=== PATIENT | male | born 1975 | race Caucasian/White ===

== ENCOUNTER → 2023-02-13 | Outpatient (CLI) | payer BC ==
[2023-02-13 13:00] LABS: Basophils # (auto) 0 10 ^3/uL (0-0.2); Basophils % (auto) 0.6 % (0.0-2.0); Eosinophils # (auto) 0.1 10 ^3/uL (0-0.8); Eosinophils % (auto) 1.3 % (0.0-7.0); Hematocrit 46.8 % (41.0-53.0); Hemoglobin 15.2 g/dL (13.5-17.5); Lymphocytes # (auto) 2.3 10 ^3/uL (0.4-5.4); Lymphocytes % (auto) 30.9 % (10.0-50.0); Mean Corpuscular Hemoglobin 27.1 pg (28.0-32.0); Mean Corpuscular Hgb Conc. 32.6 g/dL (32.0-36.0); Mean Corpuscular Volume 83.3 fL (80.0-100.0); Monocytes # (auto) 0.4 10 ^3/uL (0-1.3); Neutrophils # (auto) 4.5 10 ^3/uL (1.6-8.6); Neutrophils % (auto) 61.2 % (37.0-80.0); Nucleated Red Blood Cells % 0.1 %; Red Blood Cells 5.61 10^6/uL (4.5-5.90); Red Cell Distribution Width 13.7 % (11.8-14.3); White Blood Cell 7.4 10^3/uL (4.4-10.8)
[2023-02-13 13:11] LABS: Urine Bacteria NONE SEEN /hpf (None Seen); Urine Blood Negative /uL (Negative); Urine Clarity Clear (Clear); Urine Color Yellow (Yellow); Urine Mucus FEW (None Seen); Urine Protein, UAD TRACE (Negative); Urine Specific Gravity 1.027 (1.001-1.035); Urine Urobilinogen Normal (Negative); Urine WBC 1 /hpf (0 - 3); Urine pH 5.5 (5.0-8.0)
[2023-02-13 13:30] LABS: Alanine Aminotransferase 37 U/L (7-40); Albumin 4.9 g/dL (3.2-4.8); Alkaline Phosphatase 73 U/L (46-116); Anion Gap 5 (5-15); Aspartate Aminotransferase 14 U/L (13-40); BUN/Creatinine Ratio 18.8 (10.0-20.0); Blood Urea Nitrogen 15 mg/dL (9-23); CRP High Sensitivity 0.34 mg/dL (<1.0); Calcium 9.3 mg/dL (8.5-10.1); Carbon Dioxide 29 mmol/L (20-30); Chloride 106 mmol/L (98-107); Glucose 82 mg/dL (74-106); LDL Cholesterol 112 mg/dL (< 100); Potassium 3.9 mmol/L (3.5-5.1); Sodium 140 mmol/L (136-145); Triglycerides 60 mg/dL (< 150)
[2023-02-13 13:31] LABS: Bilirubin, Total 0.8 mg/dL (0.2-1.0); Cholesterol 198 mg/dL (< 200); HDL Cholesterol 77 mg/dL (40-59); Total Protein 7.8 g/dL (5.7-8.2)
[2023-02-13 13:34] LABS: Carcinoembryonic Antigen < 0.50 ng/mL (<=5.0)
[2023-02-13 13:35] LABS: Folate (Folic Acid) 10.38 ng/mL (>5.38)
[2023-02-13 13:37] LABS: Erythrocyte Sedimentation Rate 2 mm/hr (0-20)
[2023-02-13 13:44] LABS: Uric Acid 4.8 mg/dL (3.7-9.2)
[2023-02-14 07:07] LABS: Estradiol 17.6 pg/mL (7.6-42.6); RPR Non Reactive (Non Reactive)
[2023-02-14 08:06] LABS: Rheumatoid Arthritis Factor <10.0 IU/mL (<14.0)
[2023-02-14 12:06] LABS: Anti-Nuclear Antibody Direct Negative (Negative)
[2023-02-14 22:06] LABS: Chlamydia Trachomatis, NAA Negative (Negative); Neisseria gonorrhoeae, NAA Negative (Negative)
== END | disposition home or self-care (01) ==
LOC: LAB 12:40
PROVIDERS: ATTEND Internal Medicine
DX: Z00.00 Encounter for general adult medical examination without abnormal findings (principal)
CPT/HCPCS: 36415; 80053; 80061; 81001; 82378; 82607; 82670; 82746; 83036; 84153; 84403; 84443; 84550; 85025; 85652; 86038; 86141; 86431; 86592; 86703; 86803; 87086

== ENCOUNTER → 2023-03-11 | Outpatient (CLI) | payer BC ==
[2023-03-11 13:08] LABS: Urine Bacteria NONE SEEN /hpf (None Seen); Urine Blood Negative /uL (Negative); Urine Clarity Clear (Clear); Urine Color Yellow (Yellow); Urine Protein, UAD Negative (Negative); Urine Specific Gravity 1.029 (1.001-1.035); Urine Urobilinogen Normal (Negative); Urine WBC 1 /hpf (0 - 3); Urine pH 5.5 (5.0-8.0)
== END | disposition home or self-care (01) ==
LOC: LAB 12:38
PROVIDERS: ATTEND Urology
DX: R39.0 Extravasation of urine (principal)
CPT/HCPCS: 81001; 87086

== ENCOUNTER → 2024-03-15 | Outpatient (CLI) | payer BC ==
[~2024-03-15] MED LIST: GASTROGRAFIN 30 ML SOL ONE
--- NOTE | 2024-03-15 14:58 | DVH ---
Exam: CT CT AB PEL WITH ORAL CON ONLY History: ABD PAIN Comparison Study: None available at time of dictation. TECHNIQUE: Multidetector CT of the abdomen was performed from lung bases to pubic symphysis. Imaging was performed without IV contrast. Axial, coronal and sagittal multiplanar reformats were obtained fr om the axial data set by the technologist. Radiation Dose Information: CT Dose: CTDI volume is 16.37 mGy. Dose-length product is 1029.51 mGy*cm 1000 mL of oral Gastroview FINDINGS: Evaluation of solid organs is limited due to lack of intravenous contrast use. Findings: Lung Bases: No acute or significant lung base finding. Normal heart size. No pleural or pericardial effusion. Liver: The liver is normal in size. No focal lesions. Gallbladder and Biliary Tree: Small calculi layering posteriorly in the gallbladder. Spleen: Unremarkable Pancreas: The pancreas is grossly normal in appearance. Adrenal Glands: Unremarkable Kidneys: 8-9 mm nonobstructing calculus right kidney Bladder: Grossly unremarkable for degree of distention. Bowel: The stomach is grossly normal in appearance. Small bowel and colon are normal in caliber and d istribution. The appendix is not visualized; however, no secondary findings of acute appendicitis id entified. Ascites: Absent Lymphadenopathy: No mesenteric, retroperitoneal or periportal lymphadenopathy. Abdominal Wall and Mesentery: Unremarkable. Vasculature: The visualized abdominal aorta is normal in size and caliber. Evaluation of abdominal a nd pelvic vessels is limited due to lack of intravenous contrast. Pelvic Organs: Unremarkable Musculoskeletal: No aggressive focal bony lesions, acute fractures or dislocation. Soft tissues: Unremarkable IMPRESSION: 1. 8 -9 mm nonobstructing calculus upper pole right kidney. 2. No findings of bowel obstruction 3. Radiation optimization: All CT scans at this facility use at least one of these dose optimization te chniques: automated exposure control mA and/or kV adjustment per patient size (includes targeted exa ms where dose is matched to clinical indication) or iterative reconstruction.
== END | disposition home or self-care (01) ==
LOC: CT 11:11
PROVIDERS: ATTEND Internal Medicine
DX: N20.0 Calculus of kidney (principal); K80.20 Calculus of gallbladder without cholecystitis without obstruction; R10.9 Unspecified abdominal pain
CPT/HCPCS: 74176; Q9963

== ENCOUNTER → 2024-04-28 | Outpatient (CLI) | payer BC ==
[2024-04-28 08:30] LABS: Urine Bacteria None Seen /hpf (None Seen)
[2024-04-28 08:40] LABS: Urine Blood Negative /uL (Negative); Urine Clarity Clear (Clear); Urine Color Light-Yellow (Yellow); Urine Protein, UAD Negative (Negative); Urine Specific Gravity 1.024 (1.001-1.035); Urine Squamous Epithelial Cell None Seen /hpf (<5); Urine Urobilinogen Normal (Negative); Urine WBC 1 /hpf (0 - 3)
[2024-04-28 09:28] LABS: Alanine Aminotransferase 26 U/L (7-40); Albumin 4.6 g/dL (3.2-4.8); Alkaline Phosphatase 61 U/L (46-116); Anion Gap 8 (5-15); Aspartate Aminotransferase 18 U/L (13-40); BUN/Creatinine Ratio 10.6 (10.0-20.0); Bilirubin, Total 0.6 mg/dL (0.2-1.0); Calcium 9.7 mg/dL (8.7-10.4); Carbon Dioxide 27 mmol/L (20-31); Chloride 105 mmol/L (98-107); Cholesterol 158 mg/dL (< 200); Glucose 97 mg/dL (74-106); HDL Cholesterol 45 mg/dL (40-59); Potassium 3.9 mmol/L (3.5-5.1); Sodium 140 mmol/L (136-145); Total Protein 7.1 g/dL (5.7-8.2); Triglycerides 77 mg/dL (< 150)
[2024-04-28 09:41] LABS: Blood Urea Nitrogen 9 mg/dL (9-23); LDL Cholesterol 108 mg/dL (< 100)
[2024-04-29 07:06] LABS: RPR Non Reactive (Non Reactive)
[2024-04-29 08:06] LABS: HSV 1 IgG Antibody Reactive (Non Reactive); HSV 2 IgG Antibody Non Reactive (Non Reactive)
[2024-04-30 07:06] LABS: Chlamydia Trachomatis, NAA Negative (Negative); Neisseria gonorrhoeae, NAA Negative (Negative)
[2024-04-30 18:06] LABS: Anti-Nuclear Antibody Direct Negative (Negative)
[2024-05-01 13:06] LABS: Estrogens Total 210 pg/mL (56-213)
== END | disposition home or self-care (01) ==
LOC: LAB 08:08
PROVIDERS: ATTEND Obstetrics & Gynecology
DX: Z00.00 Encounter for general adult medical examination without abnormal findings (principal); Z11.3 Encounter for screening for infections with a predominantly sexual mode of transmission; E29.1 Testicular hypofunction
CPT/HCPCS: 36415; 80053; 80061; 81001; 82672; 83036; 84153; 84403; 84443; 86038; 86592; 86695; 86696; 86703; 86803; 87340

== ENCOUNTER → 2024-06-04 | Outpatient (CLI) | payer BC ==
[2024-06-04 12:30] LABS: Basophils # (auto) 0.1 10 ^3/uL (0-0.2); Eosinophils # (auto) 0.1 10 ^3/uL (0-0.8); Lymphocytes # (auto) 2.4 10 ^3/uL (0.4-5.4); Red Blood Cells 6.25 10^6/uL (4.5-5.90); Red Cell Distribution Width 13.6 % (11.8-14.3)
[2024-06-04 12:31] LABS: Basophils % (auto) 1.1 % (0.0-2.0); Eosinophils % (auto) 1.4 % (0.0-7.0); Hematocrit 51.9 % (41.0-53.0); Hemoglobin 16.8 g/dL (13.5-17.5); Lymphocytes % (auto) 32.7 % (10.0-50.0); Mean Corpuscular Hemoglobin 26.9 pg (28.0-32.0); Mean Corpuscular Hgb Conc. 32.4 g/dL (32.0-36.0); Monocytes # (auto) 0.6 10 ^3/uL (0-1.3); Monocytes % (auto) 7.7 % (0.0-12.0); Neutrophils # (auto) 4.2 10 ^3/uL (1.6-8.6); Neutrophils % (auto) 57.1 % (37.0-80.0); Nucleated Red Blood Cells % 1.9 %; Platelet Count (auto) 269 10^3/uL (140-450); White Blood Cell 7.3 10^3/uL (4.4-10.8)
[2024-06-04 12:48] LABS: Alanine Aminotransferase 27 U/L (7-40); Alkaline Phosphatase 68 U/L (46-116); Anion Gap 7 (5-15); Aspartate Aminotransferase 15 U/L (13-40); BUN/Creatinine Ratio 13.2 (10.0-20.0); Blood Urea Nitrogen 19 mg/dL (9-23); Calcium 9.4 mg/dL (8.7-10.4); Carbon Dioxide 27 mmol/L (20-31); Chloride 105 mmol/L (98-107); Glucose 90 mg/dL (74-106); Potassium 4.5 mmol/L (3.5-5.1); Sodium 139 mmol/L (136-145)
[2024-06-04 12:49] LABS: Bilirubin, Total 0.4 mg/dL (0.2-1.0); Total Protein 7.3 g/dL (5.7-8.2)
[2024-06-04 12:51] LABS: Albumin 4.9 g/dL (3.2-4.8)
[2024-06-05 11:06] LABS: Testosterone 615 ng/dL (264-916)
== END | disposition home or self-care (01) ==
LOC: LAB 12:17
PROVIDERS: ATTEND Obstetrics & Gynecology
DX: R86.1 Abnormal level of hormones in specimens from male genital organs (principal)
CPT/HCPCS: 36415; 80053; 84402; 84403; 85025

== ENCOUNTER → 2024-06-08 | Outpatient (CLI) | payer BC ==
[2024-06-08 11:59] LABS: Urine Bacteria None Seen /hpf (None Seen)
[2024-06-08 12:19] LABS: Urine Blood Negative /uL (Negative); Urine Clarity Clear (Clear); Urine Protein, UAD Negative (Negative); Urine Specific Gravity 1.012 (1.001-1.035); Urine Squamous Epithelial Cell None Seen /hpf (<5); Urine Urobilinogen Normal (Negative); Urine pH 6.5 (5.0-9.0)
[2024-06-08 12:21] LABS: Urine Color Light-Yellow (Yellow)
[2024-06-08 12:41] LABS: Calcium 9.5 mg/dL (8.7-10.4)
[2024-06-08 12:46] LABS: BUN/Creatinine Ratio 15.5 (10.0-20.0)
[2024-06-08 12:48] LABS: Phosphorus 3.6 mg/dL (2.4-5.1)
[2024-06-08 13:01] LABS: Creatinine, Urine 59.46 mg/dL (30.0-125.0); Protein, Urine < 6.0 mg/dL (1-14)
== END | disposition home or self-care (01) ==
LOC: LAB 11:34
PROVIDERS: ATTEND Obstetrics & Gynecology
DX: N28.9 Disorder of kidney and ureter, unspecified (principal)
CPT/HCPCS: 36415; 80069; 81001; 82306; 82570; 82607; 82746; 83735; 84156

== ENCOUNTER 2024-06-18 06:14 | Day surgery (SDC) | payer BC ==
[2024-06-17 09:58] LABS: Urine Bacteria None Seen /hpf (None Seen)
[2024-06-17 10:10] LABS: Urine Blood Negative /uL (Negative); Urine Clarity Clear (Clear); Urine Color Light-Yellow (Yellow); Urine Protein, UAD Negative (Negative); Urine Specific Gravity 1.023 (1.001-1.035); Urine Squamous Epithelial Cell None Seen /hpf (<5); Urine Urobilinogen Normal (Negative); Urine WBC < 1 /HPF (0-3)
[2024-06-17 10:18] LABS: Basophils # (auto) 0.1 10 ^3/uL (0-0.2); Eosinophils # (auto) 0.1 10 ^3/uL (0-0.8); Lymphocytes # (auto) 2.4 10 ^3/uL (0.4-5.4); Monocytes # (auto) 0.5 10 ^3/uL (0-1.3); Red Blood Cells 6.37 10^6/uL (4.5-5.90); Red Cell Distribution Width 13.6 % (11.8-14.3); White Blood Cell 7.1 10^3/uL (4.4-10.8)
[2024-06-17 10:20] LABS: Basophils % (auto) 0.7 % (0.0-2.0); Eosinophils % (auto) 1.6 % (0.0-7.0); Hematocrit 52.8 % (41.0-53.0); Hemoglobin 16.9 g/dL (13.5-17.5); Lymphocytes % (auto) 34.4 % (10.0-50.0); Mean Corpuscular Hemoglobin 26.5 pg (28.0-32.0); Mean Corpuscular Volume 82.9 fL (80.0-100.0); Monocytes % (auto) 6.8 % (0.0-12.0); Neutrophils % (auto) 56.5 % (37.0-80.0); Nucleated Red Blood Cells % 0.4 %; Platelet Count (auto) 279 10^3/uL (140-450)
[2024-06-17 10:21] LABS: INR 0.94 (0.9-1.15); Partial Thromboplastin Time 30.2 SEC (24.5-34.5)
[2024-06-17 10:46] LABS: Alkaline Phosphatase 71 U/L (46-116); Anion Gap 8 (5-15); Aspartate Aminotransferase 23 U/L (13-40); BUN/Creatinine Ratio 15.6 (10.0-20.0); Bilirubin, Total 0.5 mg/dL (0.2-1.0); Blood Urea Nitrogen 12 mg/dL (9-23); Carbon Dioxide 27 mmol/L (20-31); Chloride 105 mmol/L (98-107); Glucose 104 mg/dL (74-106); Potassium 4.2 mmol/L (3.5-5.1); Sodium 140 mmol/L (136-145); Total Protein 7.1 g/dL (5.7-8.2)
[2024-06-17 10:55] LABS: Alanine Aminotransferase 51 U/L (7-40); Albumin 4.9 g/dL (3.2-4.8)
[~2024-06-18] VITALS: Ht 162.6 cm; Wt 81.6 kg
[2024-06-18] MEDS ORDERED: ceFAZolin 2 GM/D5W100ml 100 ML IV ONE (06:29)
[2024-06-18] MEDS ORDERED: BACITRACIN TOP OINT 1 UD PKG TOP ONE (06:43)
[2024-06-18] MEDS ORDERED: LIDOCAINE 1%-Mpf/Epinephrine 1:200,000 30ml VIAL ONE (06:43)
[2024-06-18] MEDS ORDERED: fentaNYL CITRATE 100 MCG/2 ML VL ONE (07:02)
[2024-06-18] MEDS ORDERED: MIDAZOLAM HCL 2MG/2ML 2ml VIAL (1mg/ml) ONE (07:02)
[2024-06-18] MEDS ORDERED: PROPOFOL 10 MG/ML 20 ML IV ONE (07:03)
[2024-06-18] MEDS ORDERED: LIDOCAINE 1% HCL (LOCAL ANESTH.) INJ 20ML MDV ONE (07:04)
[2024-06-18] MEDS ORDERED: ONDANSETRON HCL 4 MG/2 ML VIAL ONE (07:29)
[2024-06-18] MEDS ORDERED: DexAMETHasone SOD PHOS 10MG/1ML VIAL INJ ONE (07:29)
[2024-06-18] MEDS ORDERED: PHENYLEPHRINE HCL 10 MG/ML VL ONE (07:31)
[2024-06-18] MEDS ORDERED: MEPERIDINE HCL (25 MG/ML) 1ML VIAL ONE (08:04)
[2024-06-18 08:30] VITALS: PULSE 95; RESP 11; TEMP 97.3; O2SAT 95
--- NOTE | 2024-06-18 08:33 | DVHDS2 ---
New Physician D'charge PN Admitting Diagnosis Admitting Diagnosis Desired infertility Phimosis Right renal stone Discharge Diagnosis Same Operations or Procedures Right extracorporeal shockwave lithotripsy Vasectomy Circumcision Reason(s) For Hospitalization Surgery Treatment Plan Discharge Condition of Discharge Fair Disposition Home Discharge Instructions Diet: Regular Activity: Light activity Activity comment: No heavy lifting or sexual activity x1 week Medications: Given Follow Up Care Follow Up/Referral: Two weeks for wound check and KUB Discharge Statement: "Patient was advised to return to the ER or call 911 if any headaches, dizziness, shortness of breath, chest pain, abdominal pain, bleeding, fevers, or worsening of medical condition. Patient was counseled about treatment plan, medications, possible side effects, patientverbalized understanding. All questions were answered to the best of my ability. This discharge took greater then 30 minutes in planning, reviewing documentation, counseling the patient, and discussing with other team members." CASS BETHEA MD Jun 18, 2024 08:33
[2024-06-18] MEDS ORDERED: MEPERIDINE HCL (25 MG/ML) 1ML VIAL IV PRN (08:45)
[2024-06-18] MEDS: HYDROmorphone HCL 2 MG/ML VL/or syr IV PRN (09:25)
[2024-06-18] MEDS: ACETAMINOPHEN IV 1000 MG/100ML (10MG/ML) IV PRN (09:27)
[2024-06-18 10:00] VITALS: BP 114/79; PULSE 93; RESP 18
== END 2024-06-18 10:05 | disposition home or self-care (01) ==
LOC: SUR 06:14 → EEVIPCON 07:00 → SUR 10:05
PROVIDERS: ATTEND Urology
DX: Z30.2 Encounter for sterilization (principal); N20.0 Calculus of kidney; N47.1 Phimosis
CPT/HCPCS: 36415; 50590; 54161; 55250; 80053; 81001; 85025; 85610; 85730; 87086; C1769; J1100; J1171; J2003; J2004; J2175; J2250; J2371; J2405; J2704; J3010; J7030; J0131

== ENCOUNTER → 2024-07-02 | Day surgery (SDC) | payer BC ==
[~2024-07-02] VITALS: Ht 162.6 cm; Wt 81.6 kg
[~2024-07-02] MED LIST changes: +DexAMETHasone SOD PHOS 10MG/1ML VIAL INJ ONE; +FLUMAZENIL 0.1 MG/ML INJ 10ML MDV IV PRN; -GASTROGRAFIN 30 ML SOL ONE; +HYDROmorphone HCL 2 MG/ML VL/or syr IV PRN; +KETOROLAC TROMETH 30 MG/ML 1ML VIAL ONE; +LIDOCAINE 1%-Mpf/Epinephrine 1:200,000 30ml VIAL ONE; +Lidocaine/Epinephrine 1%-1:100,000 30ML VL ONE; +NALOXONE HCL 0.4 MG/ML VIAL IV PRN; +ONDANSETRON HCL 4 MG/2 ML VIAL IV PRN; +ONDANSETRON HCL 4 MG/2 ML VIAL ONE; +ceFAZolin 2 GM/D5W100ml 100 ML IV ONE; +ePHEDrine SULFATE 50 MG/ML AMP IV PRN; +fentaNYL CITRATE 100 MCG/2 ML VL IV PRN; +hydrALAZINE HCL 20 MG/ML VL IV PRN; +oxyCODONE HCL 5MG TAB PO PRN
[2024-07-02 15:55] VITALS: PULSE 91; RESP 18; TEMP 98; O2SAT 99
--- NOTE | 2024-07-02 16:01 | DVHNC2 ---
Procedure - OPERATIVE REPORT Pre-op. Diagnosis:1.Frenulum breve Post-op. Diagnosis:1.Same as pre-op diagnosis Operation:1.Frenulectomy/Frenulotomy Anesthesia:Spinal Indications:Patient had undergone a circumcision recently. Postoperatively the frenular attachment to the ventral edge of the urethral meatus was causing difficulty with the urination and tenting affected during erection.The indications, risks, complications, alternatives and benefits for frenulectomy/frenulotomy were discussed with patient and family. All questions were encouraged and answered. Specific risks/complications including but not limited to infection, wound dehiscence, penile deformity/angulation and altered sensation on skin were discussed. He was aware of alternative management of hygiene and conservative management. He was competent and understands the discussion. The consent was obtained. Details of Procedure:Patient was brought to the operating room and placed in supine position. After induction of anesthesia, his genitalia was prepped and draped in standard surgical fashion. The frenulum was incised and redundant kevin nular tissue was excised with the mets scissors. Hemostasis was assured and the edges were re-approximated by using 3-0 and 4- 0 Vicryl Sutures in a simple interrupted fashion. Sterile dressing was then applied and patient was then awoken and moved to the recovery room in satisfactory fashion. Specimens:Frenulum Complications:None CASS BETHEA MD Jul 02, 2024 16:01
[2024-07-02 19:25] VITALS: BP 130/83; PULSE 119; RESP 19; O2SAT 95
== END | disposition home or self-care (01) ==
LOC: SUR 14:17
PROVIDERS: ATTEND Urology
DX: N47.1 Phimosis (principal)
CPT/HCPCS: 54164; 88305; J1100; J1885; J2405